=== PATIENT | male | born 1960 | race Caucasian/White ===

== ENCOUNTER 2022-05-15 09:38 | Day surgery (SDC) | payer BC, SELFPAY ==
[2022-05-15] VITALS (7 sets, daily range): BP systolic 109–134; BP diastolic 61–94; PULSE 54–65; RESP 13–18; TEMP 36.5–36.9; O2SAT 98–100; BMI 24.7
[2022-05-15] MEDS: Lactated Ringers 1,000 ML 30 ML IV (10:37)
--- NOTE | 2022-05-15 11:30 | W.ANESPRE ---
General Info Date of Service Date Performed: 05/15/22 Height: 6 ft Weight: 82.7 kg Body Mass Index (BMI): 24.7 Surgical Procedure: Operation Date: 05/15/22 13:20 Proposed Procedure Side Surgeon p Endoscopic Iliotibial Band Release w/ Trochanteric Bursectomy possible Gluteal Tendon Repair Left Jakc Cobb MD Meds Allergies and Home Medications Allergies Allergy/AdvReac Type Severity Reaction Status Date / Time ketorolac Allergy Unknown Verified 05/13/22 12:53 Home Medication Medication Instructions Recorded aspirin 81 mg tablet,delayed 81 mg PO DAILY 10/15/21 release (Adult Aspirin Regimen) losartan 100 mg tablet 100 mg PO DAILY 10/15/21 rosuvastatin 10 mg tablet 10 mg PO DAILY 10/15/21 tadalafil 5 mg tablet 5 mg PO QWEEK 10/15/21 naproxen 250 mg tablet 250 - 500 mg PO BID PRN #40 tabs 05/15/22 oxycodone 5 mg tablet 5 - 10 mg PO Q4H PRN moderate to 05/15/22 severe pain #18 tabs Current Visit Medications: Current Medications Generic Name Dose Route Start Last Admin Trade Name Freq PRN Reason Stop Dose Admin Ringer's Solution 1,000 mls @ 30 mls/hr 05/15/22 06:00 05/15/22 10:37 IV 05/15/22 16:00 30 mls/hr INFUSION VAISHALI Administration Cefazolin Sodium/Dextrose 2 gm in 50 mls @ 100 mls/hr 05/15/22 06:00 Ancef Duplex IVPB 05/15/22 23:59 PREOP VAISHALI IV Miscellaneous Supplies 1 each 05/15/22 06:00 Iv Access IV 05/15/22 23:59 DIRECTED VAISHALI Oxycodone HCl 0 mg 05/15/22 10:59 Oxycodone 5 Mg Tab PO Q3H PRN PRN Pain Sodium Chloride 0 ml 05/15/22 06:00 Normal Saline Flush 10 Ml Syr IV 05/15/22 23:59 PRN PRN Sodium Chloride 0 ml 05/15/22 06:00 Normal Saline 10 Ml Vial IJ 05/15/22 23:59 DIRECTED PRN Sterile Water 0 ml 05/15/22 06:00 Water,Injection,Sterile 10 Ml Vial IJ 05/15/22 23:59 DIRECTED PRN PFSH Active Problems Active Problems: Problem Status Onset Code Mass of right foot R22.41 Trochanteric bursitis, left hip M70.62 Tubular adenoma of colon D12.6 Hypertension I10 Hyperlipidemia E78.5 Iliotibial band syndrome of left side M76.32 Medical History Medical History Kidney stones Surgical History Surgical History History of hernia repair History of lithotripsy History of total left hip arthroplasty History of vasectomy Tobacco Smoking/Tobacco Use Status: Never Alcohol Alcohol Intake: current Alcohol intake frequency: a few times a week Alcohol type: beer Substance Use Substance use: Never Substance use type: does not use Vital Signs and Lab Results Vital Signs Most Recent Vital Signs in EMR: Most Recent Vital Signs Temp Pulse Resp BP Pulse Ox 36.9 C 54 L 16 134/94 H 98 05/15/22 10:10 05/15/22 10:10 05/15/22 10:10 05/15/22 10:10 05/15/22 10:10 Lab Results Blood Type / Crossmatch: No Data to Display Complete Blood Count: No Data to Display Complete Metabolic Panel: No Data to Display Liver Function Panel: No Data to Display Coagulation Panel: No Data to Display Cardiac Panel: No Data to Display Arterial Blood Gas: No Data to Display Venous Blood Gas: No Data to Display Pancreas Panel: No Data to Display Thyroid Panel: No Data to Display Infectious Disease: No Data to Display Blood Cultures: No Data to Display Toxicology Panel: No Data to Display Anesthesia Assessment and Plan Anesthesia History Personal History: No History of Anesthesia Complications Family History: No Family History of Anesthesia Complications Exercise Tolerance Exercise Tolerance: Metabolic Equivalents>4 Pertinent Negatives Pertinent Negatives: No Symptoms of GERD, No Major Cardiovascular Symptoms or Complaints (Murmur - Echo normal EF, Aortic valve sclerotic), No Major Pulmonary Symptoms or Complaints and No History of CVA/TIA Cardiac & Pulmonary Exam Cardiac Exam: Heart Murmur Present Pulmonary Exam: Clear Bilateral Breath Sounds Implantable Cardiac Device Does patient have a Pacemaker or an ICD?: No Airway Exam Known Difficult Airway: No Mallampati Class: 1 Mouth Opening: Normal (> 3cm) Thyromental Distance: Greater than 3 cm Neck Range of Motion: Full ROM Neck Circumference: Normal Teeth Condition: Normal Dentition ASA Classification ASA Score: ASA 2 Emergency Case?: No NPO Status NPO Status: NPO Clears >2 hours, Solids >8 hours Anesthesia Plan Resuscitation Status: Full Code Anesthesia Technique: General Anesthesia Airway Planned: LMA Monitors Used: Standard Monitors
[2022-05-15] MEDS: ceFAZolin 2 GM/50 ML BAG IVPB (13:30)
--- NOTE | 2022-05-15 14:35 | DI.RAD_ITS ---
Exam(s) XR HIP LT IN OR EXAM: XR HIP LT IN OR CLINICAL HISTORY: TROCHANTERIC BURSITIS LEFT HIP. TECHNIQUE: 2D digital imaging was performed. COMPARISON: No exams were available for comparison FINDINGS: Fluoroscopy provided during therapeutic hip procedure. See procedure report for details. Cumulative dose= 3.65mGy IMPRESSION: DATA REPOSITORY: RADIATION DOSE DELIVERED:
[2022-05-15] MEDS: EPINEPHrine 30 MG/30 ML VIAL (14:37)
[2022-05-15] MEDS: oxyCODONE 5 MG TAB PO (14:53)
--- NOTE | 2022-05-15 15:18 | W.PM.DSUDISC ---
Date of service: 05/15/22 Time of Service: 15:18 Discharge Plan Disposition Patient Disposition: HOME Condition: Good Discharge Details Attending Provider: Jack Cobb Primary Care Provider: Adriana,Local Home Meds and New Rx's Prescriptions: New naproxen 250 mg tablet 250 - 500 mg PO BID PRNQty: 40 0RF Rx Instructions: take with a meal oxycodone 5 mg tablet 5 - 10 mg PO Q4H MDD 30 mg PRN (Reason: moderate to severe pain) Qty: 18 0RF Continued aspirin [Adult Aspirin Regimen] 81 mg tablet,delayed release (DR/EC) 81 mg PO DAILY losartan 100 mg tablet 100 mg PO DAILY rosuvastatin 10 mg tablet 10 mg PO DAILY tadalafil 5 mg tablet 5 mg PO QWEEK Discharge Instructions Additional Instructions: Surgery: Left hip endoscopy with iliotibial band release and trochanteric bursectomy Activity: Weightbearing as tolerated. May use crutches or walker as needed for a few days. Gradually advance to full range of motion and activity over the next 6-8 weeks. Physical therapy will be arranged to be done locally as needed. Prescriptions: Resume aspirin 81 mg daily starting tomorrow, 24 hours post-procedure, for 2 weeks Naproxen 250 mg take 1-2 every 12 hours with a meal as needed for moderate pain (stay hydrated and use judiciously) Oxycodone 5 mg take 1-2 every 4-6 hours as needed for severe pain You may use [id number] Tylenol (acetaminophen) as needed for mild pain. These pain medications may be taken all at once or in different combinations as needed. Also, recommend Colace (docusate) as a stool softener as surgery and pain medicine cause constipation. You may try [id number] diphenhydramine (Benadryl) 25-50 mg nightly as a sleep aid Dressings: It is normal for water to leak out and make the bandage pink. If the bandage becomes soaked, remove and replace with dry gauze. After 3 days, remove and leave open to air or cover incisions with Band-Aids. May shower after 5 days. Follow-up: 10-[address] Cobb You may take off the leg compression stockings this evening at home. You may also leave them on a few days longer if you have a history of leg swelling or edema. Let us know right away if you develop any redness, drainage, fevers, chest pain, or trouble breathing. Do not drink alcohol or drive for at least 24 hours after anesthesia. Please call the office during business hours with any questions or concerns. DS: Diagnosis Discharge Diagnosis (1) Trochanteric bursitis, left hip: Status: Acute
--- NOTE | 2022-05-15 15:20 | ROE_ITS ---
Date of service: 05/15/22 Time of Service: 15:20 Operative Note Operative Note DATE OF PROCEDURE: 05/15/22 PRE-OP DIAGNOSIS: Left hip 1. Iliotibial band syndrome 2. Trochanteric bursitis POST-OP DIAGNOSIS: same PROCEDURE: Left hip endoscopic 1. Iiliotibial band release, CPT# 41750 2. Trochanteric bursectomy, CPT# 47216 SURGEON: Jack Cobb CUSTOMER SERVICE PROFESSIONAL: Lesly Vega ANESTHESIA TYPE: Local By Surgeon and General LMA/ETT Refer to Anesthesia Record ESTIMATED BLOOD LOSS: 5 COMPLICATIONS: None Patient was transported to: PACU Patient's condition: stable Indications: Please see complete medical record for details. Findings: Thickened iliotibial band. Abundant, inflamed trochanteric bursitis. Intact gluteal tendons. Procedure Description: In the operating room, general anesthesia was induced. The patient was positioned supine on the [facility] operating room table. All bony prominences were well-padded. Preoperative antibiotics were administered. The hip was prepped and draped in the usual sterile fashion. The correct patient, procedure, and side of the procedure were all verified prior to incision. 20 cc of 0.25% bupivacaine containing epinephrine was infiltrated about the subcutaneous tissues for the planned anterior lateral and distal anterolateral portals as well as deeply over the greater trochanter. A knife was used to incise the skin for the anterior lateral and distal anterolateral portals followed by blunt dissection subcutaneously. Under fluoroscopic guidance, a switching stick and arthroscope were inserted localizing the iliotibial band over the greater trochanter. Blunt dissection and the mechanical shaver were used to resect fat and overlying tissue about the center of the iliotibial band and carefully expose the anterior and posterior margins. Once there was adequate exposure of the IT band, the greater trochanter was again localized under fluoroscopic guidance with a spinal needle inserted through the skin down to bone. This central area was marked using the radiofrequency ablator. A [place] blade was brought in and used to create a 2 cm longitudinal incision in line with the IT band fibers as well as extending it in a cruciate fashion with 2 cm incisions anteriorly and posteriorly. The radiofrequency ablator was used to achieve hemostasis. The mechanical shaver was then used to debride the IT band released edges exposing the trochanteric bursa. The mechanical shaver was then used to excise the trochanteric bursa taking care to protect musculature about the margins of the greater trochanter as well as neurovascular structures especially posteriorly. There was excellent visualization of the vastus lateralis as well as gluteus medius confirming appropriate bursa excision. The hip was brought through range of motion including internal and external rotation and there was no impinging iliotibial band tissue or remaining pathologic bursa. The viewing and working portals were switched and appropriate IT band release, trochanteric bursa excision, and hemostasis confirmed. Suction was used to remove fluid from the endoscopic space. An additional 10 cc of 0.25% bupivacaine containing epinephrine was injected around portals, which were closed using 3-0 Monocryl in a buried fashion. Steri-Strips were applied over the incisions followed by Xeroform, 4 x 4 gauze, an ABD pad, and secured with tape. The patient awoke from anesthesia without complication and was transferred to the recovery room in a stable condition.
--- NOTE | 2022-05-15 15:35 | W.ANESPOSTOP ---
Postoperative Evaluation Date, Time and Location Date Performed: 05/15/22 Time Performed: 15:13 Patient Location: PACU Vital Signs Most Recent Imported Vital Signs: Most Recent Vital Signs Temp Pulse Resp BP Pulse Ox 36.6 C 61 16 109/83 100 05/15/22 15:20 05/15/22 15:20 05/15/22 15:20 05/15/22 15:20 05/15/22 15:20 Pain Score Most Recent Pain Score: Most Recent Pain Score Pain Level 6 05/15/22 15:20 Assessment Mental Status: Awake (Alert & Oriented to Patient Baseline) Airway and Respiratory Function: Patent airway with normal (patient baseline) respiratory exam Cardiovascular Function: Hemodynamically Stable Hydration Status: Adequately Hydrated Nausea & Vomiting: No Nausea or Vomiting Pain: Pain is tolerable per patient Peripheral Nerve Block: Patient did not receive a nerve block
== END 2022-05-15 16:15 | disposition home or self-care (01) ==
PROVIDERS: Visit Provider Student in an Organized Health Care Education/Training Program
PROC: (CPT 29863; principal; 2022-05-15 13:00)
DX: M70.62 Trochanteric bursitis, left hip (principal); M76.32 Iliotibial band syndrome, left leg; Z96.642 Presence of left artificial hip joint
CPT/HCPCS: 27062; 27305; 73501; J0690; J1100; J2405; J2704